=== PATIENT | female | born 1985 | race Caucasian/White ===

== ENCOUNTER 2016-10-17 15:02 | Emergency (ER) | payer OTHER ==
[~2016-10-17] VITALS: Ht 154.9 cm; Wt 51.0 kg
[2016-10-17 15:03] VITALS: BP 111/74; PULSE 88; RESP 15; TEMP 98.2; O2SAT 99
--- NOTE | 2016-10-17 15:11 | PD ---
Physical Exam Date Seen by Provider: October 17, 2016 Time Seen by Provider: 15:07 Narrative 31 yo female that presents to the ED for evaluation of medical clearance. Here for detox from percocet. Has been using it for 9 years. Wants to detox from it. Last dose yesterday. Called a facility that told her to come here. Vitals sign stable. Patient awaiting bed placement. Data Data Last Documented VS Vital Signs Date Time Temp Pulse Resp B/P Pulse Ox O2 Delivery O2 Flow Rate FiO2 10/17/16 15:03 98.2 88 15 111/74 99 MDM Medical Record Reviewed: Yes Supervised Visit with WILLY: No Miguel Alcantara October 17, 2016 15:11
[2016-10-17 16:13] VITALS: BP 111/57; PULSE 96
[2016-10-17] MEDS ORDERED: OXYC1TAB36 PO (16:14)
[2016-10-17] MEDS ORDERED: ZOFR4TAB PO (16:14)
--- NOTE | 2016-10-17 16:27 | PD ---
HPI Chief Complaint: Medical Clearance Time Seen by Provider: 16:15 Travel History International Travel<30 days: No Contact w/Intl Traveler<30days: No Traveled to known affect area: No History of Present Illness HPI 31-year-old female with a history of chronic low back pain and opiate dependence presents to the emergency department for evaluation of possible opiate withdrawal. The patient states that she has been taking oxycodone 10 325 mg tablets for the past 9 years for her chronic low back pain. States that she desires to stop taking this medication and would like to detox. She states that she has been taking 12 tablets daily for the past 1.5 years. She last had a oxycodone last night. States that today she had one to 2 episodes of diarrhea and some mild nausea. She also complains of body aches all over. She denies any fever, chills, vomiting, chest pain, shortness of breath, abdominal pain. Denies suicidal or homicidal ideations. Denies any other drug use. Denies alcohol use. Denies , last menstrual period 3 weeks ago. No other complaints. PFSH Past Medical History Narrative Medical Chronic back pain ?: Not Social History Alcohol Use: No Tobacco Use: No Substance Use: No Allergies-Medications (Allergen,Severity, Reaction): Coded Allergies: No Known Allergies (Unverified , 10/17/16) Reported Meds & Prescriptions Reported Meds & Active Scripts Active Zofran (Ondansetron HCl) 4 Mg Tab 4 Mg PO Q6HR PRN Reported Oxycodone-Acetaminophen 10-325 mg Tab 1 Tab PO Q4H PRN Review of Systems Except as stated in HPI: all other systems reviewed are Neg Physical Exam Narrative GENERAL: Well-nourished and well-developed pleasant female patient in no acute distress who is nontoxic appearing. SKIN: Warm and dry. HEAD: Normocephalic and atraumatic. EYES: No injection, drainage, or hyphema noted. PERRLA. EOMI. ENT: No nasal drainage noted. Oropharynx is clear. NECK: Supple and the trachea is midline. CARDIOVASCULAR: Regular rate and rhythm. RESPIRATORY: Breath sounds are equal bilaterally with no accessory muscle use, wheezing, rhonchi, or crackles. GASTROINTESTINAL: Abdomen is soft, non-tender, and nondistended. MUSCULOSKELETAL: No obvious deformities, swelling, cyanosis, or ecchymosis is present throughout the upper and lower extremities. Patient has full range of motion without any signs of neurovascular compromise. NEUROLOGICAL: Awake, alert, and oriented. Normal speech and gait. Cranial nerves are grossly intact. Data Data Last Documented VS Vital Signs Date Time Temp Pulse Resp B/P Pulse Ox O2 Delivery O2 Flow Rate FiO2 10/17/16 16:13 96 111/57 10/17/16 16:12 15 10/17/16 15:03 98.2 99 [facility] Medical Decision Making Medical Screen Exam Complete: Yes Emergency Medical Condition: Yes Differential Diagnosis OB withdrawal versus opiate dependence versus medical clearance Narrative Course 31-year-old female presents to the emergency department requesting detox from opiates. Patient is afebrile, vital signs are stable. Physical examination is unremarkable. No suicidal or homicidal ideations. I discussed with the patient that we do not offer detox here at our facility, she is given outpatient resources were [facility]. She'll be prescribed Zofran for her nausea. Stable for discharge. Patient verbalizes understanding and agreement with treatment plan. I discussed the case with my attending physician Dr. Davis who is aware of the patients history, physical examination findings, and treatment plan. Diagnosis Primary Impression: Opiate withdrawal [facility]: [facility] Patient Instructions: General Instructions, Opioid Withdrawal (ED) Additional Instructions: Take medication as prescribed. Follow-up with [facility]. Return to the ED for any acute worsening of symptoms. Med/Other Pt SpecificInfo: Prescription(s) given Scripts Ondansetron (Zofran)4 Mg Tab4 Mg PO Q6HR PRN (NAUSEA OR VOMITING) #15 TAB Ref 0 Prov:Stacie Davis MD 10/17/16 Disposition: 01 DISCHARGE HOME Condition: Stable Jayla Lindo October 17, 2016 16:27
== END 2016-10-17 16:37 | disposition home or self-care (01) ==
LOC: NEPD 15:02
DX: F11.23 Opioid dependence with withdrawal (principal); G89.29 Other chronic pain
CPT/HCPCS: 99283